=== PATIENT | male | born 1995 | race Caucasian/White ===

== ENCOUNTER 2018-10-30 15:18 | Emergency (ER) | payer OTHER ==
[2018-10-30] MEDS ORDERED: NS 1,000 ML IV ONE (15:56)
[2018-10-30] MEDS ORDERED: ONDANSETRON 4 MG/2 ML VIAL IVP ONE (15:56)
--- NOTE | 2018-10-30 15:59 | EDPHY ---
H & P Stated Complaint: CHI +LOC Time Seen by Provider: 10/30/18 15:34 HPI/ROS: CHIEF COMPLAINT: Head injury, vomiting HISTORY OF PRESENT ILLNESS: 23-year-old male presents after a fall with severe headache and vomiting. [place], when he fell off his skateboard and fell directly on to the back of his head approx 1.5hrs ago. According to his friend, he was alert on scene, perseverating and amnestic to the event. 2-3 episodes of vomiting and unable to tolerate oral fluids. Currently has a severe headache, 8/10. No LOC. Denies other injuries. REVIEW OF SYSTEMS: complete 10 point ROS negative except as noted in the HPI - Personal History Current Tetanus/Diphtheria Vaccine: Unsure Current Tetanus Diphtheria and Acellular Pertussis (TDAP): Unsure - Medical/Surgical History Hx Asthma: No Hx Chronic Respiratory Disease: No Hx Diabetes: No Hx Cardiac Disease: No Hx Renal Disease: No Hx Cirrhosis: No Hx Alcoholism: No Hx HIV/AIDS: No Hx Splenectomy or Spleen Trauma: No - Social History Smoking Status: Unknown if ever smoked Alcohol Use: Sober - Physical Exam Exam: General Appearance: Alert, pale Head: Tenderness and swelling posteriorly Eyes: No conjunctival erythema, PERRLA, EOMI ENT, Mouth: No hemotympanum, no oral trauma, no bony tenderness Neck: Nontender, full range of motion without pain Respiratory: No chest wall tenderness, lungs clear bilaterally Cardiovascular: Regular rate and rhythm Abdomen: Abdomen is soft and nontender Skin: No lacerations, no abrasions Back: Abrasions on midback, no midline T/L/S tenderness Extremities: Pelvis is stable and nontender; no extremity tenderness or deformity, full range of motion without pain Neurological: Alert, oriented to person and place, normal motor function, normal sensory exam, cranial nerves intact Psychiatric: Mood and affect normal Constitutional: Initial Vital Signs Temperature (C) 36.9 C 10/30/18 15:33 Heart Rate 105 H 10/30/18 15:33 Respiratory Rate 16 10/30/18 15:33 Blood Pressure 105/86 H 10/30/18 15:33 O2 Sat (%) 96 10/30/18 15:33 O2 Delivery Mode Nasal Cannula O2 (L/minute) 2 Allergies/Adverse Reactions: No Known Allergies Allergy (Unverified 10/30/18 16:14) Home Medications: Medication Instructions Recorded Hydrocodone/APAP 5/325 [[place] 1 - 2 tab PO Q4H PRN #10 tab 10/30/18 5/325] Ondansetron Odt [Zofran Odt 4 mg 4 mg PO Q4 PRN #6 tab 10/30/18 (*)] Medical Decision Making - Diagnostics Imaging Results: Imaging Impressions Head CT 10/30/18 15:46 Impression: 1. Normal CT brain without contrast. 2. No skull fracture. Findings and recommendations discussed with Emergency Department physician, Dr. Subha Mays at 1646 hours on October 30, 2018. Final report concurs with initial preliminary interpretation. ED Course/Re-evaluation: This patient presents with a severe headache, vomiting and amnesia after a head injury. Neuro exam is unremarkable. CT scan of the brain ordered. IV normal saline 1 L and Zofran 4 mg IV given. 5:00 p.m.-CT results discussed with the patient. He continues to have a severe headache and nausea. Also complains of generalized muscle pain. Repeat physical exam is unchanged. Abdomen is soft and nontender. Morphine 6 mg IV and Reglan 10 mg IV given. 6:30pm: feels better, wants to go home. Concussion instructions/precautions given. Differential Diagnosis: Differential diagnosis includes though it is not limited to fracture, intracranial hemorrhage, pneumothorax, hemothorax, intra-abdominal hemorrhage. - Data Points Medications Given: Discontinued Medications Sodium Chloride (Ns) 1,000 mls @ 0 mls/hr IV EDNOW ONE; Wide Open PRN Reason: Protocol Stop: 10/30/18 15:57 Last Admin: 10/30/18 16:15 Dose: 1,000 mls Metoclopramide HCl (Reglan Injection) 10 mg IVP EDNOW ONE Stop: 10/30/18 16:59 Last Admin: 10/30/18 17:25 Dose: 10 mg Morphine Sulfate (Morphine) 6 mg IVP EDNOW ONE Stop: 10/30/18 16:59 Last Admin: 10/30/18 17:28 Dose: 6 mg Ondansetron HCl (Zofran) 4 mg IVP EDNOW ONE Stop: 10/30/18 15:57 Last Admin: 10/30/18 16:15 Dose: 4 mg Departure - Departure Disposition: Home, Routine, Self-Care Clinical Impression: Concussion Condition: Good Instructions: Concussion (ED) Additional Instructions: 1. Cognitive rest while symptomatic. Limit screen time (phone, TV, computer) until symptoms resolve. 2. Limit physical activities that could lead to head injury until symptoms have completely resolved. Wear a helmet when skiing and biking. 3. Use Tylenol and ibuprofen as directed on the packaging as needed for pain for the next few days. 4. Follow up with your primary care provider and/or head injury specialist if you have persisting symptoms for more than 10 days. 5. Return to the ED for severe headache, weakness or numbness on one side of your body, or other worsening of condition. 6. Ibuprofen 600 mg 3 times daily while the pain persists. Referrals: Lucy Mcclain MD [Medical Doctor] - As per Instructions Prescriptions: Hydrocodone/APAP 5/325 [[place] 5/325] 1 - 2 tab PO Q4H PRN #10 tab PRN Reason: Pain, Moderate Ondansetron Odt [Zofran Odt 4 mg (*)] 4 mg PO Q4 PRN #6 tab PRN Reason: Nausea
[2018-10-30] MEDS ORDERED: METOCLOPRAMIDE 10 MG/2 ML VIAL IVP ONE (16:58)
[2018-10-30] MEDS ORDERED: KETOROLAC 15 MG/1 ML SDV IVP ONE (18:38)
[2018-10-30 18:53] VITALS: BP 146/88
== END 2018-10-30 19:00 | disposition home or self-care (01) ==
DX: S06.0X9A Concussion with loss of consciousness of unspecified duration, initial encounter (principal); E86.9 Volume depletion, unspecified; V00.131A Fall from skateboard, initial encounter; Y93.51 Activity, roller skating (inline) and skateboarding
CPT/HCPCS: 96374; J1885; J2270; J2405; J2765